=== PATIENT | male | born 1970 | race Caucasian/White ===

== ENCOUNTER 2018-02-27 14:31 | Emergency (ER) | payer OTHER ==
[~2018-02-27] VITALS: Ht 182.9 cm; Wt 86.2 kg
[~2018-02-27 14:31] MED LIST: LEVSIN/SL0.125 MG SL
== END 2018-02-27 19:53 | disposition home or self-care (01) ==
LOC: ER 14:31
DX: I10 Essential (primary) hypertension (principal); E86.0 Dehydration; F06.4 Anxiety disorder due to known physiological condition